=== PATIENT | female | born 1985 | race American Indian/Alaskan Native ===

== ENCOUNTER 2021-11-21 12:57 | Emergency (ER) | payer MEDICARE ==
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
[2021-11-21 15:35] LABS: Basophils # (Auto) 0.1 K/mm3 (0.0-0.1); Eosinophils # (Auto) 0.4 K/mm3 (0.0-0.4); Eosinophils % (Auto) 7.1 % (0.0-4.3); Hematocrit 36.9 % (30.3-42.9); Hemoglobin 12.5 gm/dl (10.1-14.3); Lymphocytes # (Auto) 1.3 K/mm3 (1.2-5.4); Lymphocytes % (Auto) 21.9 % (13.4-35.0); Mean Corpuscular HGB Conc 34 % (30-34); Mean Corpuscular Volume 98 fl (79-97); Monocytes # (Auto) 0.5 K/mm3 (0.0-0.8); Monocytes % (Auto) 8.7 % (0.0-7.3); Platelet Count 114 K/mm3 (140-440); Red Blood Count 3.78 M/mm3 (3.65-5.03); Red Cell Distribution Width 15.7 % (13.2-15.2)
[2021-11-21 15:41] LABS: INR 0.89 (0.87-1.13); Partial Thromboplastin Time 29.2 Sec. (24.2-36.6)
[2021-11-21 15:56] LABS: Alanine Aminotransferase 7 units/L (7-56); Albumin 3.9 g/dL (3.9-5); Blood Urea Nitrogen 22 mg/dL (7-17); Hemolysis Index 17
[2021-11-21 16:08] LABS: BUN/Creatinine Ratio 44; Bilirubin,Direct < 0.2 mg/dL (0-0.2)
--- NOTE | 2021-11-22 11:32 | Event Note ---
Date: 11/22/21 No new events overnight. Awaiting plan and disposition from a mental health aspect
--- NOTE | 2021-11-23 11:05 | Event Note ---
Date: 11/23/21 no events overnight medically cleared vss no distress , awaiting psych assessment
--- NOTE | 2021-11-24 11:11 | Event Note ---
Date: 11/24/21 pt is awaiting transfer , deputy will come and pick her up since she doesn;t have transportation insurance
[2021-11-25 12:33] VITALS: BP 107/71
== END 2021-11-25 12:01 | disposition home or self-care (01) ==
LOC: ED 12:57
DX: R45.851 Suicidal ideations (principal); Z88.2 Allergy status to sulfonamides
CPT/HCPCS: 36415; 80048; 80076; 80320; 84703; 85025; 85610; 85730; 86850; 86900; 86901; 99284; G0480

== ENCOUNTER 2021-12-26 18:28 | Emergency (ER) | payer MEDICARE ==
[2021-12-27 00:27] LABS: Basophils # (Auto) 0.1 K/mm3 (0.0-0.1); Basophils % (Auto) 1.5 % (0.0-1.8); Eosinophils # (Auto) 0.5 K/mm3 (0.0-0.4); Eosinophils % (Auto) 6.2 % (0.0-4.3); Hemoglobin 12.8 gm/dl (10.1-14.3); Lymphocytes # (Auto) 1.9 K/mm3 (1.2-5.4); Lymphocytes % (Auto) 25.1 % (13.4-35.0); Mean Corpuscular HGB Conc 35 % (30-34); Mean Corpuscular Volume 96 fl (79-97); Monocytes # (Auto) 0.8 K/mm3 (0.0-0.8); Platelet Count 215 K/mm3 (140-440); Red Blood Count 3.86 M/mm3 (3.65-5.03); Red Cell Distribution Width 14.2 % (13.2-15.2)
[2021-12-27 00:29] LABS: Bilirubin,Urine NEG (Negative); Blood,Urine NEG (Negative); Color,Urine Yellow (Yellow); Mucus,Urine FEW /HPF; Protein,Urine <15 mg/dL mg/dL (Negative); Urobilinogen,Urine < 2.0 mg/dL (<2.0)
[2021-12-27 00:37] LABS: Blood Urea Nitrogen 22 mg/dL (7-17); Hemolysis Index 6
[2021-12-27 00:42] LABS: Amphetamine Screen,Urine PRESUMPTIVE NEGATIVE; Benzodiazepines Screen,Urine PRESUMPTIVE NEGATIVE; Cannabinoid Screen,Urine PRESUMPTIVE NEGATIVE; Cocaine Screen,Urine PRESUMPTIVE NEGATIVE; Methadone Screen,Urine PRESUMPTIVE NEGATIVE; Opiate Screen,Urine PRESUMPTIVE NEGATIVE
[2021-12-27 00:42] LABS: BUN/Creatinine Ratio 37
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
[2021-12-27] MEDS ORDERED: LORazepam 1 MG TAB PO ONE (03:05)
[2021-12-27] MEDS ORDERED: diphenhydrAMINE 25 MG CAP PO ONE (03:06)
--- NOTE | 2021-12-27 11:22 | Event Note ---
Date: 12/27/21 The patient was evaluated in the emergency department for symptoms described in the history of present illness. He/she was evaluated in the context of the global COVID-19 pandemic, which necessitated consideration that the patient might be at risk for infection with the virus that causes COVID-19. Institutional protocols and algorithms that pertain to the evaluation of patients at risk for COVID-19 are in a state of rapid change based on information released by regulatory bodies including the CDC and federal and state organizations. These policies and algorithms were followed during the patient's care in the emergency department. Please note that these policies, procedures and recommendations changed on a rapid basis. Laboratory studies, vital signs, nursing documentation, ER documentation, and psychiatric documentation are reviewed and appreciated. Nursing team reports no acute events this morning or concerns. The patient is awake and does not appear to be in any acute distress The patient was deemed medically suitable for psychiatric disposition and placement during her initial ER evaluation. The patient continues to remain medically suitable for psychiatric placement and disposition. She is currently pending psychiatric placement. COVID swab ordered in anticipation of psychiatric request, and for disposition purposes. Patient not hypoxic at this time. Do not clinically suspect acute COVID. Patient remains medically suitable for psychiatric disposition at this time Vital Signs 12/26/21 12/26/21 12/26/21 21:53 22:57 23:01 Temperature 98.4 F Pulse Rate 101 H Respiratory 18 Rate Blood Pressure 113/80 107/52 107/52 Blood Pressure [Right] O2 Sat by Pulse 99 98 Oximetry 12/26/21 12/26/21 12/26/21 23:11 23:15 23:17 Temperature 98.0 F Pulse Rate 66 Respiratory 16 Rate Blood Pressure 107/52 90/53 Blood Pressure 107/60 [Right] O2 Sat by Pulse 97 98 97 Oximetry 12/26/21 12/26/21 12/27/21 23:31 23:45 00:03 Temperature Pulse Rate Respiratory Rate Blood Pressure 90/53 86/53 96/50 Blood Pressure [Right] O2 Sat by Pulse 97 96 97 Oximetry 12/27/21 12/27/21 12/27/21 00:15 00:31 00:45 Temperature Pulse Rate Respiratory Rate Blood Pressure 100/60 100/60 100/67 Blood Pressure [Right] O2 Sat by Pulse 97 98 98 Oximetry 12/27/21 12/27/21 12/27/21 01:01 01:15 01:31 Temperature Pulse Rate Respiratory Rate Blood Pressure 102/61 107/68 107/68 Blood Pressure [Right] O2 Sat by Pulse 98 97 97 Oximetry 12/27/21 12/27/21 01:45 01:49 Temperature 98.4 F Pulse Rate 70 Respiratory 16 Rate Blood Pressure 99/67 Blood Pressure 100/60 [Right] O2 Sat by Pulse 96 98 Oximetry
[2021-12-27] MEDS ORDERED: NON-FORMULARY EACH (Levothyroxine Sodium [Levothyroxine] 100 MCG Capsule) PO SCH (11:30)
[2021-12-27] MEDS ORDERED: LEVETIRACETAM 250 MG PO SCH (11:30)
[2021-12-27] MEDS ORDERED: levETIRAcetam 500 MG TAB PO SCH (11:30)
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
[2021-12-27 11:48] VITALS: BP 128/48
[2021-12-27] MEDS ORDERED: OXcarbazepine 300 MG TAB PO SCH (22:00)
[2021-12-28] MEDS ORDERED: LEVOTHYROXINE 100 MCG TAB PO SCH (11:30)
== END 2021-12-27 13:14 | disposition home or self-care (01) ==
LOC: ED 18:28
DX: F25.8 Other schizoaffective disorders (principal); Z88.2 Allergy status to sulfonamides; Z20.822 Contact with and (suspected) exposure to COVID-19
CPT/HCPCS: 36415; 80048; 80307; 81001; 84703; 85025; 99284; U0003; 80320; 99283; G0480